=== PATIENT | female | born 1940 | race Caucasian/White ===

== ENCOUNTER → 2019-08-15 | Outpatient (CLI) | payer MEDICARE ==
[~2019-08-15] MED LIST: CLIN150 PO
== END | disposition home or self-care (01) ==
LOC: LAB SHORT 12:33 → LAB 12:33
DX: R19.5 Other fecal abnormalities (principal)
CPT/HCPCS: 87177; 87209

== ENCOUNTER → 2019-09-04 | Outpatient (CLI) | payer MEDICARE | END | disposition home or self-care (01) | LOC: LAB SHORT 08:33 → PLD 08:33 | DX: R93.89 Abnormal findings on diagnostic imaging of other specified body structures (principal) | CPT/HCPCS: 88305 ==

== ENCOUNTER → 2019-09-04 | Outpatient (CLI) | payer MEDICARE ==
[2019-09-06 14:11] LABS: HPV 16 Negative (Negative); HPV 18 Negative (Negative); HPV OTHER HR TYPES Negative (Negative)
== END | disposition home or self-care (01) ==
LOC: LAB 16:18 → LAB SHORT 16:18
PROVIDERS: Family Medicine
DX: Z12.4 Encounter for screening for malignant neoplasm of cervix (principal)
CPT/HCPCS: 87624; G0123

== ENCOUNTER 2025-04-25 06:30 | Day surgery (SDC) | payer OTHER ==
[~2025-04-25] VITALS: Ht 167.6 cm; Wt 58.1 kg
[~2025-04-25 06:30] MED LIST changes: +Balanced Salt Epinephrine Irrigation Solution 500 mL IR SCH; +Moxifloxacin HCL 0.5 MG/0.1 ML 0.4MLSYR RIGHTEYE SCH; +Ondansetron 4 MG SoluTab MM PRN; +PHENYLEPHRINE\\TROPICAMIDE\\TETRACAINE OPHTHALMIC DILATING SOLN RIGHTEYE PRN; +Povidone-Iodine 450 DROP/30 ML Solution RIGHTEYE SCH; +Triamcinolone Inj Susp 40 MG / ML 1ML Vial INJ SCH; +diazePAM 2 MG,diazePAM 5 MG PO SCH
[2025-04-25] MEDS ORDERED: Triamcinolone Inj Susp 40 MG / ML 1ML Vial ONE (06:48)
--- NOTE | 2025-04-25 07:36 | NUR ---
04/25/25 0736 ANDRE NGUYEN 11/13 ANXIETY, 2MG VALIUM GIVEN AT 0735
--- NOTE | 2025-04-25 08:04 | NUR ---
04/25/25 0804 Sharon Guajardo 131/69 68 16 100 VSS
[2025-04-25 08:12] VITALS: BP 145/74
--- NOTE | 2025-04-25 08:28 | NUR ---
04/25/25 0828 SANDI MADDEN CAME IN TO LISTEN TO DC INSTRUCTIONS WITH PT
== END 2025-04-25 08:26 | disposition home or self-care (01) ==
LOC: ORSCSDS 06:30
PROVIDERS: Ophthalmology
PROC: 08RJ3JZ Replacement of Right Lens with Synthetic Substitute, Percutaneous Approach (ICD-10-PCS; principal; 2025-04-25 08:00)
DX: H25.811 Combined forms of age-related cataract, right eye (principal)
CPT/HCPCS: A9270; J2003; J3301; V2632

== ENCOUNTER 2025-05-09 06:24 | Day surgery (SDC) | payer OTHER ==
[~2025-05-09] VITALS: Ht 170.2 cm; Wt 58.8 kg
[~2025-05-09 06:24] MED LIST changes: +Moxifloxacin HCL 0.5 MG/0.1 ML 0.4MLSYR LEFTEYE SCH; -Moxifloxacin HCL 0.5 MG/0.1 ML 0.4MLSYR RIGHTEYE SCH; +PHENYLEPHRINE\\TROPICAMIDE\\TETRACAINE OPHTHALMIC DILATING SOLN LEFTEYE PRN; -PHENYLEPHRINE\\TROPICAMIDE\\TETRACAINE OPHTHALMIC DILATING SOLN RIGHTEYE PRN; +Povidone-Iodine 450 DROP/30 ML Solution LEFTEYE SCH; +Povidone-Iodine 450 DROP/30 ML Solution ONE; -Povidone-Iodine 450 DROP/30 ML Solution RIGHTEYE SCH; +Tetracaine HCl/Pf 0.5% Opth Soln 4 ml ONE
[2025-05-09] MEDS ORDERED: Triamcinolone Inj Susp 40 MG / ML 1ML Vial ONE (06:44)
--- NOTE | 2025-05-09 07:35 | NUR ---
05/09/25 0735 ANDRE NGUYEN REPORTS ANX IS NOW 07/16
[2025-05-09] MEDS ORDERED: Tetracaine HCl 0.5% Opth Soln 15 ml LEFTEYE ONE (07:58)
--- NOTE | 2025-05-09 07:59 | NUR ---
05/09/25 0758 Sharon Perez 68 HR 97% O2 16 RR 154/82 BP
[2025-05-09 08:15] VITALS: BP 148/77
== END 2025-05-09 08:28 | disposition home or self-care (01) ==
LOC: ORSCSDS 06:24
PROVIDERS: Ophthalmology
PROC: 08RK3JZ Replacement of Left Lens with Synthetic Substitute, Percutaneous Approach (ICD-10-PCS; principal; 2025-05-09 08:00)
DX: H25.812 Combined forms of age-related cataract, left eye (principal); Z96.1 Presence of intraocular lens
CPT/HCPCS: A9270; J2003; J3301; V2632